=== PATIENT | male | born 1985 | race Caucasian/White ===

== ENCOUNTER → 2020-09-08 09:44 | Outpatient (CLI) | payer OTHER, SELFPAY ==
[2020-09-08 12:07] LABS: COVID19 -Nasal RAPID Negative (Negative)
== END ==
PROVIDERS: PCP Internal Medicine; Visit Provider Physician Assistant
DX: Z01.812 Encounter for preprocedural laboratory examination (principal); Z20.822 Contact with and (suspected) exposure to COVID-19
CPT/HCPCS: 87635

== ENCOUNTER 2020-09-09 13:47 | Day surgery (SDC) | payer OTHER, SELFPAY ==
[2020-09-06 12:57] VITALS: BMI 62.1
[2020-09-09] VITALS (8 sets, daily range): BP systolic 127–147; BP diastolic 70–103; PULSE 74–79; RESP 14–20; TEMP 36.2–36.8; O2SAT 93–97; BMI 63.8
--- NOTE | 2020-09-09 15:27 | PM.PREOP ---
Pre-operative Note COVID-19 COVID-19 status: Negative Result date/Date tested (Pos, Neg/Pending): 09/07/20 Interval Note History & Physical reviewed/Exam performed by Physician: Yes Changes to H&P: No
[2020-09-09] MEDS: CEFAZOLIN 1 GM VIAL 2 GM IV (15:36)
--- NOTE | 2020-09-09 15:59 | SUR.OPER ---
Supine on padded OR bed, head on pillow, left arm secured on padded arm board at <90 degrees abduction, right arm on large padded arm board controlled by surgeon, legs uncrossed, safety belt at thigh, tape over blanket over lower legs.
[2020-09-09] MEDS: BUPIVACAINE 0.5% W/ EPI (PF) 30 ML VIAL INJ (16:06)
--- NOTE | 2020-09-09 16:19 | PM.OP.1 ---
Operative Date/Time/Diagnoses Date of procedure: 09/09/20 Time of procedure: 15:46 Pre-op diagnosis: Right carpal tunnel Post-op diagnosis: same Procedure & Clinicians Procedure: Right carpal tunnel release Same procedure as scheduled: Yes Indications: Right carpal tunnel Surgeon: Neymar Maldonado Click Yes if Unassisted: Yes Anesthesia Type: Peripheral nerve block Operative Notes Findings: Compression of the median nerve at the carpal tunnel. No sign of any intra-articular masses no sign of any ganglion cyst. Closure Type: primary Specimen(s): none sent Estimated Blood Loss (mL): 2 Tourniquet time (min): 29 Procedure in detail: On date of service, the patient was met in the holding area. Patients operative site was signed and witnessed by the OR staff. The surgery was once again discussed with the patient, and any remaining questions they had were answered fully. Patient was taken back to the operating theater and placed on the operating table in a supine position. Great care was taken to ensure that all bony prominences were carefully padded. A well-padded tourniquet was placed up along the upper extremity. A timeout was performed to verify patient's name, procedure, and operative site. The arm was then prepped and draped in the normal sterile fashion. A 15 blade was used to incise through skin In the center of the palm. Pickups and tenotomy scissors were used to dissect down until the palmar fascia was visualized. The palmar fascia was then sharply incised using a 15 blade. This gave us good visualization of the carpal ligament. A small opening was made into the carpal ligament, and a curved hemostat was placed into that opening. A 15 blade was then used to sharply incise the carpal ligament with the structures beneath being protected by the hemostat. Pickups and Metzenbaum scissors were used to complete the decompression both distally and proximally. This provided a complete decompression of the median nerve. The wound was then irrigated and closed with nylon. The hand was then cleaned, dried, and dressed. Patient was taken to the PACU in stable condition. Complications: none Post-operative Condition: stable Disposition: PACU Plan for aftercare: Patient will follow our postoperative protocol for carpal tunnel release
== END 2020-09-09 17:00 | disposition home or self-care (01) ==
PROVIDERS: PCP Internal Medicine; Referring Provider Orthopaedic Surgery; Visit Provider Orthopaedic Surgery
PROC: (CPT 64721; principal; 2020-09-09 15:15)
DX: G56.01 Carpal tunnel syndrome, right upper limb (principal); G47.30 Sleep apnea, unspecified; F32.9 Major depressive disorder, single episode, unspecified; G43.909 Migraine, unspecified, not intractable, without status migrainosus; F17.210 Nicotine dependence, cigarettes, uncomplicated; E66.9 Obesity, unspecified; Z68.44 Body mass index [BMI] 60.0-69.9, adult
CPT/HCPCS: 64721; J0690; J2250; J2704; J3010

== ENCOUNTER 2020-12-02 07:33 | Day surgery (SDC) | payer OTHER, SELFPAY ==
[2020-11-26 12:10] VITALS: BMI 62.1
[2020-12-02 08:01] LABS: COVID19 -Nasal RAPID Negative (Negative)
[2020-12-02 08:29] VITALS: BP 148/88; PULSE 70; RESP 18; TEMP 37; O2SAT 98; BMI 62.1
[2020-12-02] MEDS: LACTATED RINGERS 1,000 ML 42 ML IV (08:38)
[2020-12-02] MEDS: ACETAMINOPHEN 325 MG TABLET 975 MG PO (08:47)
[2020-12-02] MEDS: GABAPENTIN 300 MG CAPSULE PO (08:48)
[2020-12-02] MEDS: CELECOXIB 200 MG CAPSULE 400 MG PO (08:59)
--- NOTE | 2020-12-02 09:33 | PM.PREOP ---
Pre-operative Note Interval Note History & Physical reviewed/Exam performed by Physician: Yes Changes to H&P: No
[2020-12-02] MEDS: CEFAZOLIN 1 GM VIAL 2 GM IV (10:12)
--- NOTE | 2020-12-02 10:20 | SUR.OPER ---
Supine on padded OR bed, head on pillow, right ar secured on padded arm boards at <90 degrees abduction,left arm draped free on padded black hand table, legs uncrossed, safety belt at thigh, tape over blanket over lower legs.
[2020-12-02] MEDS: BUPIVACAINE 0.25% W/ EPI 30 ML VIAL INJ (10:29)
[2020-12-02 10:38] VITALS: BP 151/91; PULSE 67; RESP 15; TEMP 36.5; O2SAT 100
[2020-12-02 10:43] VITALS: BP 149/72; PULSE 67; RESP 10; O2SAT 98
--- NOTE | 2020-12-02 10:47 | SUR.PHASEI ---
Received to PACU after MAC. Airway patent, self maintained. Report from IDRIS Mabry and Dr Flowers.
[2020-12-02 10:48] VITALS: BP 130/74; PULSE 69; RESP 12; TEMP 36.6; O2SAT 98
--- NOTE | 2020-12-02 10:50 | PM.OP.1 ---
Operative Date/Time/Diagnoses Date of procedure: 12/02/20 Time of procedure: 10:10 Pre-op diagnosis: Left carpal tunnel Post-op diagnosis: same Procedure & Clinicians Procedure: Left carpal tunnel release Same procedure as scheduled: Yes Indications: Left carpal tunnel Surgeon: Neymar Maldonado Click Yes if Unassisted: Yes Anesthesia Type: MAC +/- Operative Notes Findings: Compression of the median nerve at the carpal tunnel. Closure Type: primary Specimen(s): none sent Estimated Blood Loss (mL): 0 Tourniquet time (min): 15 Procedure in detail: On date of service, the patient was met in the holding area. Patients operative site was signed and witnessed by the OR staff. The surgery was once again discussed with the patient, and any remaining questions they had were answered fully. Patient was taken back to the operating theater and placed on the operating table in a supine position. Great care was taken to ensure that all bony prominences were carefully padded. A well-padded tourniquet was placed up along the upper extremity. A timeout was performed to verify patient's name, procedure, and operative site. The arm was then prepped and draped in the normal sterile fashion. A 15 blade was used to incise through skin In the center of the palm. Pickups and tenotomy scissors were used to dissect down until the palmar fascia was visualized. The palmar fascia was then sharply incised using a 15 blade. This gave us good visualization of the carpal ligament. A small opening was made into the carpal ligament, and a curved hemostat was placed into that opening. A 15 blade was then used to sharply incise the carpal ligament with the structures beneath being protected by the hemostat. Pickups and Metzenbaum scissors were used to complete the decompression both distally and proximally. This provided a complete decompression of the median nerve. The wound was then irrigated and closed with nylon. The hand was then cleaned, dried, and dressed. Patient was taken to the PACU in stable condition. Complications: none Post-operative Condition: stable Disposition: PACU Plan for aftercare: Patient follow-up postoperative protocol for carpal tunnel release
[2020-12-02 10:55] VITALS: BP 136/73; PULSE 72; RESP 16; TEMP 36.6; O2SAT 97
[2020-12-02 11:12] VITALS: BP 136/77; PULSE 67; RESP 14; TEMP 36.6; O2SAT 97
== END 2020-12-02 11:15 | disposition home or self-care (01) ==
PROVIDERS: PCP Internal Medicine; Referring Provider Orthopaedic Surgery; Visit Provider Orthopaedic Surgery
PROC: (CPT 64721; principal; 2020-12-02 09:45)
DX: G56.02 Carpal tunnel syndrome, left upper limb (principal); E66.01 Morbid (severe) obesity due to excess calories; G47.33 Obstructive sleep apnea (adult) (pediatric); Z68.44 Body mass index [BMI] 60.0-69.9, adult
CPT/HCPCS: 64721; 87635; J0690; J2250; J2704; J3010

== ENCOUNTER → 2022-02-20 09:47 | Outpatient (CLI) | payer OTHER, SELFPAY ==
[2022-02-20 11:15] LABS: Add Manual Diff / Slide Review NO; Basophils Absolute Auto 100 /uL (0-100); Basophils Percent Auto 0.7 % (0-2); Eosinophils Absolute Auto 200 /uL (0-450); Hematocrit 44.5 % (41-53); Hemoglobin 15.4 g/dL (13.5-17.5); Lymphocytes Absolute Auto 2300 /uL (1100-4500); Lymphocytes Percent Auto 23.6 % (25-40); Mean Corpuscular HGB Conc 34.5 % (30-36); Mean Corpuscular Hemoglobin 31.1 PG (26-34); Monocytes Absolute Auto 600 /uL (0-900); Monocytes Percent Auto 5.9 % (3-14); Neutrophils Absolute Auto 6600 /uL (1500-7000); Neutrophils Percent Auto 67.8 % (50-75); Platelet Count 275 X10^3/uL (150-400); Red Blood Cell Count 4.95 X10^6/uL (4.5-5.9); Red Cell Distribution Width 13.6 % (11.6-14.8); White Blood Cell Count 9.7 X10^3/uL (4.5-11.0)
[2022-02-20 11:23] LABS: Hemoglobin A1C% w Est Avg Glu 5.3 % (4.0-6.0)
[2022-02-20 11:32] LABS: Alanine Aminotransferase 32 IU/L (<50); Albumin 4.1 g/dL (3.5-5.0); Albumin Globulin Ratio 1.5 (1.0-2.8); Alkaline Phosphatase 55 U/L (38-126); Aspartate Aminotransferase 22 IU/L (17-59); Bilirubin Total 0.5 mg/dL (0.2-1.3); Blood Urea Nitrogen 12 mg/dL (9-20); Calcium 8.9 mg/dL (8.4-10.2); Carbon Dioxide 28 mmol/L (22-32); Chloride 103 mmol/L (98-107); Cholesterol 161 mg/dL (140-199); Estimated Glomerular Filt Rate > 60 mL/min (>60); Globulin 2.8 g/dL (1.7-4.1); Glucose 85 mg/dL (70-100); HDL Cholesterol 42 mg/dL (40-60); HEMOLYSIS < 15 (0-50); LDL Cholesterol Calculated 109 mg/dL (<100); Potassium 4.6 mmol/L (3.4-5.1); Sodium 139 mmol/L (137-145); Total Protein 6.9 g/dL (6.3-8.2); Triglycerides 50 mg/dL (35-150)
[2022-02-20 12:04] LABS: TSH w/ Reflex to FT4 1.24 uIU/mL (0.47-4.68)
== END ==
PROVIDERS: PCP Family Medicine; Referring Provider Family Medicine; Visit Provider Family Medicine
DX: E66.01 Morbid (severe) obesity due to excess calories (principal); I10 Essential (primary) hypertension
CPT/HCPCS: 36415; 80053; 80061; 83036; 84443; 85025

== ENCOUNTER → 2022-05-01 09:01 | Outpatient (CLI) | payer OTHER, SELFPAY ==
--- NOTE | 2022-05-01 09:02 | DI.US.S_ITS ---
PROCEDURE: US SOFT TISSUE HEAD AND NECK INDICATIONS: LEFT MANDIBULAR LUMP X 6 YEARS TECHNIQUE: Real-time scanning was performed of the neck region of interest, with image documentation. COMPARISON: None. FINDINGS: There is a 2.3 x 1.9 x 1.9 cm solid mass in the left submandibular area, within or adjacent to the submandibular gland, correlating with the palpable abnormality. The mass demonstrates internal vascularity on Doppler ultrasound. No enlarged lymph nodes are seen in the left neck. IMPRESSION: 1. A 2.3 x 1.9 x 1.8 cm solid mass in the left submandibular area, correlating with the palpable abnormality. 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 Recommend ultrasound-guided fine-needle aspiration biopsy if clinically indicated. CT neck with contrast is also help for further evaluation. Dictated by: Rhea Issa M.D. on 05/01/2022 at 10:00 Approved by: Rhea Issa M.D. on 05/01/2022 at 10:04
== END ==
PROVIDERS: PCP Family Medicine; Referring Provider Family Medicine; Visit Provider Family Medicine
DX: K11.9 Disease of salivary gland, unspecified (principal); M79.89 Other specified soft tissue disorders; F17.200 Nicotine dependence, unspecified, uncomplicated
CPT/HCPCS: 76536

== ENCOUNTER → 2022-05-29 08:16 | Outpatient (CLI) | payer OTHER, SELFPAY ==
--- NOTE | 2022-05-29 08:17 | DI.CT.S_ITS ---
PROCEDURE: CT SOFT TISSUE NECK W CON INDICATIONS: neck mass, abn U/S TECHNIQUE: After the administration of intravenous contrast, 3.0 mm axial sections acquired from the sella to the aortic arch. Additional oblique axial 3.0 mm sections acquired through the pharynx. 3 mm thick coronal and sagittal reformats were generated. For radiation dose reduction, the following was used: automated exposure control. COMPARISON: [facility], SOFT TISSUE HEAD AND NECK, 05/01/2022, 9:06. FINDINGS: Mild asymmetric enlargement of the left submandibular gland as compared to the right. Otherwise normal appearance of the submandibular glands with no discrete submandibular gland mass identified. There is a mass in the posterior aspect of the left parotid superficial lobe measuring approximately 2.6 x 2.2 x 2.0 cm CC x AP x LR. Multiple mildly enlarged left level 2 and 3 lymph nodes. Mildly enlarged pharyngeal tonsils with multiple tonsilloliths. No discrete tonsillar mass identified. Thyroid gland unremarkable. Lung apices clear. No acute or suspicious bone lesion. Mild cervical spine degenerative changes. IMPRESSION: Left parotid gland mass. Tissue diagnosis recommended. Mild asymmetric enlargement of the left submandibular gland without discrete mass. No CT correlate for the left submandibular gland mass described in comparison ultrasound report. Dictated by: Marshal Cooper M.D. on 05/29/2022 at 9:48 Approved by: Marshal Cooper M.D. on 05/29/2022 at 9:57
== END ==
PROVIDERS: PCP Family Medicine; Referring Provider Family Medicine; Visit Provider Family Medicine
DX: K11.8 Other diseases of salivary glands (principal); R22.1 Localized swelling, mass and lump, neck
CPT/HCPCS: 70491; Q9967

== ENCOUNTER → 2022-05-29 14:20 | Outpatient (CLI) | payer OTHER, SELFPAY ==
--- NOTE | 2022-05-29 14:22 | DI.US.S_ITS ---
PROCEDURE: US BIOPSY LYMPH NODE INDICATIONS: LEFT SUBMANDIBULAR AREA MASS TECHNIQUE: The indications, alternatives, benefits, risks, and complications of the procedure were explained to the patient. Written informed consent was obtained and placed in the chart. Real-time sonography was utilized to choose the site for percutaneous lymph node sampling. The skin was prepped and draped in the usual sterile fashion. 1% lidocaine was infiltrated down to the site of interest. A coaxial needle was then advanced into the site of interest under direct sonographic visualization. A biopsy apparatus was then utilized, and core biopsies were obtained. The needle was then withdrawn; a bandage was applied to the biopsy site. COMPARISON: None. FINDINGS: Biopsy site(s): Left neck Needle: Tempronics biopsy needle set. Number of passes: 4 Medications: 1% lidocaine for local anaesthesia. Complications: None. IMPRESSION: Successful ultrasound-guided left neck mass biopsy, with pathology results pending. Dictated by: Digna Lakhani M.D. on 05/29/2022 at 19:37 Approved by: Digna Lakhani M.D. on 05/29/2022 at 19:37
== END ==
PROVIDERS: PCP Family Medicine; Referring Provider Family Medicine; Visit Provider Family Medicine
DX: K11.8 Other diseases of salivary glands (principal); R22.1 Localized swelling, mass and lump, neck; M47.812 Spondylosis without myelopathy or radiculopathy, cervical region
CPT/HCPCS: 38505; 70491; 76942; Q9967

== ENCOUNTER 2024-10-08 08:31 | Emergency (ER) | payer OTHER, SELFPAY ==
--- NOTE | 2024-10-08 08:49 | ED_ITS ---
HPI - Back Pain/Injury General Chief Complaint: Back Pain/Injury Stated Complaint: Lower back pain. x 2 days Time Seen by Provider: 10/08/24 08:49 History of Present Illness HPI Narrative: Patient is a 39-year-old male with a past medical history of hypertension, comes into the ED from home for evaluation of low back pain, he states that a proximally 2 days ago he was on the toilet and turn to wipe and felt a pop/spasm of his low back. States that it was was getting better however today woke up and felt like his back spasmed again. States that he is not having any bowel or urinary incontinence or retention, denies any lower extremity weakness numbness tingling sensation. As any trauma or falls. Not on any blood thinners was able to stand bear weight ambulate here in the emergency department. Related Data Previous Rx's ?Medication ?Instructions ?Recorded hydroxyzine HCl 25 mg tablet 25 mg PO QID PRN anxiety/ panic #30 04/28/24 tabs lisinopril 20 mg tablet 20 mg PO DAILY #90 tabs 04/16 07/08 fluoxetine 20 mg capsule (Prozac) 60 mg (3 x 20 mg) PO DAILY #270 06/16/24 caps diazepam 5 mg tablet (Valium) 5 mg PO BEDTIME PRN musc le spasm 5 10/08/24 days #5 tabs methylprednisolone 4 mg tablets in See Rx Instructions PO .COMPLEX 10/08/24 a dose pack (Medrol (Ángel)) #21 ea oxycodone-acetaminophen 5 mg-325 1 tab PO Q8H PRN pain 3 days #9 10/08/24 mg tablet (Percocet) tabs Allergies Allergy/AdvReac Type Severity Reaction Status Date / Time hydrocodone Allergy Intermediate ITCHING Verified 10/08/24 09:38 Review of Systems Review of Systems Narrative: General: Denies fever, chills, weight loss HEENT: Denies headache, eye drainage, eye irritation, head trauma, sore throat, voice change Cardiovascular: Denies any chest pain, palpitations, tachycardia Respiratory: Denies any shortness of breath, cough, wheeze, stridor GI/: Denies any abdominal pain, nausea, vomiting, diarrhea, bright red blood per rectum, melanotic stools, urinary frequency, urinary retention, dysuria, hematuria MSK: Positive low back pain Skin: Denies any rashes, lesions, discoloration Neuro: Denies any headache, lightheadedness, dizziness, fainting, weakness Psych: Denies SI/HI Patient History Medical History (Updated 10/08/24 @ 09:13 by Jas Nixon DO) Vapes nicotine containing substance Anger reaction Warthin tumor Mass of salivary gland Neck mass Tobacco dependence GLO (obstructive sleep apnea) Benign essential HTN BMI 60.0-69.9, adult Arthritis Headache Sleep apnea Knee pain (~2013) Generalized anxiety disorder Morbid obesity Depression Chronic back pain (~2013) Surgical History (Updated 11/26/20 @ 12:11 by Michelle Salguero RN) History of carpal tunnel surgery of right wrist (09/09/20) Anesthesia S/P cholecystectomy Family History (Updated 07/21/20 @ 21:15 by Ayde Rick) Father Diabetes mellitus Colon cancer Mental health problem Mother Diabetes mellitus Stroke Grandfather History of heart disease Social History household members: spouse, family and children alcohol intake: current alcohol intake frequency: holidays/special occasions only Exam Narrative Exam Narrative: General: Cooperative, well-developed, not in acute distress HEENT: Normocephalic, atraumatic, PERRLA, normal sclera, eyelids normal Neck: Active full range of motion, atraumatic Chest: Normal to inspection, negative crepitus, no overlying erythema ecchymosis Respiratory: Normal respiratory effort, not in acute respiratory distress, clear to auscultation bilaterally negative cough, wheeze, tachypnea, rhonchi, rales Cardiology: Regular rate rhythm negative gallop, murmur, rubs GI/: No tenderness to palpation, soft, non rigid, normal to inspection, exam deferred MSK: Full active range of motion in all 4 extremities, atraumatic, no tenderness to palpation of any bony prominences, patient is able to stand bear weight ambulate unassisted here in the emergency department, strength equally bilaterally 5/5, no midline tenderness to palpation of the lumbar spine, minor tenderness to palpation of the paraspinal muscles Skin: No rashes or lesions noted Neuro: Alert awake oriented x3, moves all 4 extremities spontaneously, cranial nerves intact, able to answer all questions appropriately follows commands appropriately Psych: Cooperative, negative suicidal or homicidal ideations Initial Vital Signs Initial Vital Signs: Vital Signs Temperature 98.0 F 10/08/24 09:38 Pulse Rate 68 10/08/24 09:38 Respiratory Rate 20 10/08/24 09:38 Blood Pressure 140/71 10/08/24 09:38 Pulse Oximetry 99 10/08/24 09:38 Oxygen Delivery Method Room Air 10/08/24 09:38 Course Orders Ordered: ED Orders 10/08/24 09:01 CT lumbar spine wo con Stat Discontinued Medications Diazepam (Diazepam 5 Mg Tablet) 10 mg PO NOW ONE Stop: 10/08/24 09:02 Last Admin: 10/08/24 09:15 Dose: 10 mg Documented By: XIAO Ondansetron HCl (Ondansetron 4 Mg Odt) 4 mg SL NOW ONE Stop: 10/08/24 09:02 Last Admin: 10/08/24 09:15 Dose: 4 mg Documented By: XIAO Oxycodone/Acetaminophen (Oxycodone/Acetaminophen 5/325 Tablet) 1 tab PO NOW ONE Stop: 10/08/24 09:02 Last Admin: 10/08/24 09:15 Dose: 1 tab Documented By: XIAO Vital Signs Vital signs: Vital Signs - 8 hr 10/08/24 09:38 Temperature 98.0 F Pulse Rate 68 Respiratory Rate 20 Blood Pressure 140/71 Pulse Oximetry 99 Oxygen Delivery Method Room Air MDM - Back Pain/Injury Differential Diagnosis Differential diagnosis: Likely lumbar radiculopathy and strain of lumbar region Imaging Data CT lumbar: Radiologist's Impression: [place] [address] CT Scan Report Signed Patient: Tab More MR#: [id number] : 1985 Acct:[id number] Age/Sex: 39 / M Date of Service: 10/08/24 Loc: ED Accession Number: [id number] Procedure: CT lumbar spine wo con Ordering Provider: Jas Nixon D.O. PROCEDURE: CT LUMBAR SPINE WO CON INDICATIONS: low back pain TECHNIQUE: Noncontrast 3 mm thick sections acquired from the T12 level to the sacrum. Sagittal and coronal reformats were constructed. For radiation dose reduction, the following was used: automated exposure control. COMPARISON: None. FINDINGS: Image quality: Excellent. Bones: There is normal bony alignment. No acute vertebral body compression fractures. No suspicious lytic or blastic bony lesions. No pars defects. T12-L1: No canal stenosis or foraminal stenosis. L1-L2: No canal stenosis or foraminal stenosis. L2-L3: Congenitally short pedicles. No canal stenosis or foraminal stenosis. L3-L4: Congenitally short pedicles. Facet and ligament hypertrophy. Mild canal stenosis. No significant foraminal stenosis. L4-L5: Congenitally short pedicles. Facet hypertrophy. Disc bulge. Moderate canal stenosis. No significant foraminal stenosis. L5-S1: Posterior disc bulge plus osteophyte. Congenitally short pedicles. Facet hypertrophy. Mild canal stenosis. Bilateral foraminal disc post osteophyte osteophyte results in moderate to severe right foraminal narrowing and severe left foraminal narrowing with bilateral foraminal L5 nerve root impingement. Soft tissues: No retroperitoneal masses or hematomas. Visualized aorta is normal in caliber. IMPRESSION: 1. Underlying congenitally short pedicles. 2. Multilevel lower lumbar facet arthropathy. 3. Canal stenosis is mild at L3-L4, moderate at L4-L5, and mild at L5-S1. 4. Significant bilateral foraminal narrowing at L5-S1 with bilateral foraminal L5 nerve root impingement. [facility] Narrative Medical decision making narrative: Patient is a 39-year-old male with a past medical history of hypertension presenting for low back pain started 2 days ago after turning and wiping using the toilet, states he felt a pop, was improving but woke up this morning with the back type. Denies any red flags for cauda equina. Patient able to stand bear weight ambulate here in the emergency department. Patient had CT scan that did not show any acute findings. Patient with improved symptoms after administration medication here. Patient will be discharged home with symptomatic relief instructed follow up with the PCP in outpatient setting, he verbalized understanding of this and agrees to being discharged home outpatient follow up. Discharge Plan Departure Patient Disposition: Home Clinical Impression: Lumbar strain Instructions: DI for Back Strain or Sprain Activity Restrictions/Additional Instructions: Please follow up with primary care and orthopedic surgery as needed in outpatient setting Please read the discharge instructions sheet carefully and bring all papers to all doctor follow-up visits, as it may contain information that your doctor may want to see. Disease processes change and evolve, if your symptoms worsen or if you develop any new symptoms that are concerning to you please return for evaluation. Your evaluation today does not show any evidence of any life- threatening/serious illnesses requiring admission to the hospital or surgery. Please follow-up with your doctor for re-evaluation in approximately 1 day. Seek immediate medical attention for any worrisome symptoms. *If you do not have a primary care provider please contact the [facility] Resource line at [phone]. They will ask some questions about your medical history and help get you set up with a doctor in the community. Prescriptions: New methylprednisolone [Medrol (Ángel)] 4 mg tablets,dose pack See Rx Instructions .ROUTE .COMPLEX Qty: 21 0RF Rx Instructions: for 6 days oxycodone-acetaminophen [Percocet] 5-325 mg tablet 1 tab PO Q8H PRN (Reason: pain) 3 Days Qty: 9 0RF diazepam [Valium] 5 mg tablet 5 mg PO BEDTIME PRN (Reason: muscle spasm) 5 Days Qty: 5 0RF No Action hydroxyzine HCl 25 mg tablet 25 mg PO QID PRN (Reason: anxiety/panic) Qty: 30 11RF lisinopril 20 mg tablet 20 mg PO DAILY Qty: 90 3RF fluoxetine [Prozac] 20 mg capsule 60 mg PO DAILY Qty: 270 3RF Referrals: Shana Gonsales DO [Primary Care Provider, Family Practice] Gordy Nolasco MD [Physician, Orthopedic Surgery] Stand Alone Forms: Patient Portal/API
[2024-10-08 09:00] VITALS: BP 140/71; PULSE 69; O2SAT 96
--- NOTE | 2024-10-08 09:01 | DI.CT.S_ITS ---
PROCEDURE: CT LUMBAR SPINE WO CON INDICATIONS: low back pain TECHNIQUE: Noncontrast 3 mm thick sections acquired from the T12 level to the sacrum. Sagittal and coronal reformats were constructed. For radiation dose reduction, the following was used: automated exposure control. COMPARISON: None. FINDINGS: Image quality: Excellent. Bones: There is normal bony alignment. No acute vertebral body compression fractures. No suspicious lytic or blastic bony lesions. No pars defects. T12-L1: No canal stenosis or foraminal stenosis. L1-L2: No canal stenosis or foraminal stenosis. L2-L3: Congenitally short pedicles. No canal stenosis or foraminal stenosis. L3-L4: Congenitally short pedicles. Facet and ligament hypertrophy. Mild canal stenosis. No significant foraminal stenosis. L4-L5: Congenitally short pedicles. Facet hypertrophy. Disc bulge. Moderate canal stenosis. No significant foraminal stenosis. L5-S1: Posterior disc bulge plus osteophyte. Congenitally short pedicles. Facet hypertrophy. Mild canal stenosis. Bilateral foraminal disc post osteophyte osteophyte results in moderate to severe right foraminal narrowing and severe left foraminal narrowing with bilateral foraminal L5 nerve root impingement. Soft tissues: No retroperitoneal masses or hematomas. Visualized aorta is normal in caliber. IMPRESSION: 1. Underlying congenitally short pedicles. 2. Multilevel lower lumbar facet arthropathy. 3. Canal stenosis is mild at L3-L4, moderate at L4-L5, and mild at L5-S1. 4. Significant bilateral foraminal narrowing at L5-S1 with bilateral foraminal L5 nerve root impingement. Dictated by: Keenan Frost M.D. on 10/08/2024 at 9:46 Approved by: Keenan Frost M.D. on 10/08/2024 at 9:52
[2024-10-08] MEDS: ONDANSETRON 4 MG ODT SL (09:15)
[2024-10-08] MEDS: OXYCODONE/ACETAMINOPHEN 5/325 TABLET 1 TAB PO (09:15)
[2024-10-08] MEDS: diazePAM 5 MG TABLET 10 MG PO (09:15)
[2024-10-08 09:30] VITALS: BP 129/63; PULSE 63; O2SAT 95
[2024-10-08 09:38] VITALS: BP 140/71; PULSE 68; RESP 20; TEMP 36.7; O2SAT 99; BMI 61.0
[2024-10-08 10:00] VITALS: BP 132/61; PULSE 65; O2SAT 96
== END 2024-10-08 10:45 | disposition home or self-care (01) ==
PROVIDERS: Emergency Provider Student in an Organized Health Care Education/Training Program; PCP Family Medicine
DX: S39.012A Strain of muscle, fascia and tendon of lower back, initial encounter (principal); X50.1XXA Overexertion from prolonged static or awkward postures, initial encounter
CPT/HCPCS: 72131; 99283; 99284